=== PATIENT | female | born 1960 | race Hispanic/Latino ===

== ENCOUNTER 2020-04-09 14:05 | Outpatient (CLI) | payer OTHER ==
--- NOTE | 2020-04-09 14:43 | RAD ---
TWO VIEW CHEST: HISTORY: Neoplasm right lung. COMPARISON: There are no comparison studies available. FINDINGS: There is opacification of the right hemithorax with possibly some aeration in the mid right lung. The left lung is aerated and clear. There is evidence of cardiomegaly. Vascularity in the left lung appears upper normal. The osseous structures are unremarkable. A MediPort catheter is in place via the right jugular with tip overlying the region of the SVC. IMPRESSION: 1. Opacification of the right hemithorax. Possible small amount of aerated lung in the right mid ch est. No significant shift of the mediastinum. The trachea is in the midline. 2. The left lung appears clear. POS: AH
== END 2020-04-09 14:06 | disposition home or self-care (01) ==
LOC: RAD 14:05
PROVIDERS: ATTEND Thoracic Surgery (Cardiothoracic Vascular Surgery)
DX: C34.91 Malignant neoplasm of unspecified part of right bronchus or lung (principal); R91.8 Other nonspecific abnormal finding of lung field
CPT/HCPCS: 71046